=== PATIENT | male | born 1990 | race Caucasian/White ===

== ENCOUNTER 2021-08-03 02:43 | Emergency (ER) | payer OTHER, BC ==
[2021-08-03] MEDS ORDERED: Morphine 4 MG/ML VIAL ONE ×2 (03:26→06:02)
[2021-08-03] MEDS ORDERED: Lidocaine 1% PF 5 ML VIAL ONE ×2 (04:28→05:32)
[2021-08-03] MEDS ORDERED: Bacitracin 1 PK ONE (05:56)
== END 2021-08-03 05:54 | disposition home or self-care (01) ==
LOC: ERS 02:43
DX: S43.101A Unspecified dislocation of right acromioclavicular joint, initial encounter (principal); S01.311A Laceration without foreign body of right ear, initial encounter; F17.210 Nicotine dependence, cigarettes, uncomplicated; F17.220 Nicotine dependence, chewing tobacco, uncomplicated; V86.99XA Unspecified occupant of other special all-terrain or other off-road motor vehicle injured in nontraffic accident, initial encounter
CPT/HCPCS: 12013; 70450; 71046; 72125; 96372; 96374; J2270